=== PATIENT | female | born 1955 | race Caucasian/White ===

== ENCOUNTER 2017-04-23 06:00 | Day surgery (SDC) | payer OTHER ==
[~2017-04-23] VITALS: Ht 172.7 cm; Wt 117.9 kg
[~2017-04-23 06:00] MED LIST: ESCITALOPRAM OX10 MG PO; LISINOPRIL10 MG PO; METFORMIN HCL500 MG PO; OMEPRAZOLE20 MG PO; RELPAX20 MG PO; TOPROL XL50 MG PO; TOUJEO SOL300 UNIT/1; XARELTO20 MG PO
--- NOTE | 2017-04-23 08:18 | NUR ---
04/23/17 0818 Michelle Mcdonough 0751- RESP EVEN AND AND UNLABORED. O2 SAT WAS 86% WHEN FRIST ARRIVED. 0753 PT REACTIVE TO STIMULI AND O2 SAT INCREASED TO 95% 0800 O2 DECREASED TO 6L 0802 O2 REMOVED, PT AWAKE AND ASKING QUESTIONS. 0808 O2 SAT DECREASED TO 85% AND NC PLACED ON PT AT 4L. 0812 O2 SAT INCREASED TO 95%. PT BACK TO SLEEP.
--- NOTE | 2017-04-23 18:42 | OR ---
[facility] [address], [place] [address] Signed DATE OF OPERATION: 04/23/2017 SURGEON: Beckie Wild MD PREOPERATIVE DIAGNOSES: 1. Change in bowel habits with crampy lower abdominal pain and increased frequency of stool. 2. Anemia with hemoglobin 11.0. POSTOPERATIVE DIAGNOSES: 1. Gjgenuo-xu-ebnixheu left and sigmoid colon diverticulosis. 2. Minimal internal hemorrhoids. PROCEDURE: Colonoscopy without biopsy. ESTIMATED BLOOD LOSS: None. INDICATIONS: Adalgisa is a 61-year-old obese diabetic female at 5 feet 8 inches, 263 pounds with a body mass index of 40. She had been having crampy lower abdominal pain and had increased frequency of stool. Her guaiac cards were negative. She had been to her primary care provider. With her change in bowel habits, she was asked to see me for her initial colonoscopy. She gives no family history of colon cancer or polyps. She does get nauseated with anesthetics, so we gave her Phenergan and Zofran preoperatively. In addition, she has had cardiac cath and cardiac evaluation. The global product manager told her they gave a maximum amount of drugs during the cardiac cath and still could not get her to sleep. In addition, she takes daily escitalopram and has a very heavy full thick neck and a very short chin. I explained to him because of all these things, we would need an anesthesia provider to help us with increased monitoring of her airway as well as sedation with propofol. I also gave her a pamphlet in the office on colonoscopy. We looked at that together along with the risks including, but not limited to gas bloating, crampy abdominal pain, bleeding, perforation requiring surgery, and missed diagnosis. She had expressed understanding and wished to proceed. PROCEDURE NOTE: Adalgisa was taken into our endoscopy suite and placed in the left lateral decubitus position. She was given IV sedation with propofol per our nurse electric meter setter. Our nurse electric meter setter had to maintain her airway throughout the entire case. Under sedation, she Electronically Signed By: BECKIE WILD MD 04/23/17 1842 PATIENT NAME: ADALGISA HART OPERATIVE REPORT DATE OF : 59 PHYSICIAN: BECKIE WILD MD REPORT #: [id number] REPORT IS CONFIDENTIAL AND NOT TO BE RELEASED WITHOUT AUTHORIZATION [facility] [address] [place] [id number] Signed would rapidly desaturate and not protect her airway. When awake of course, her saturations would come back up. She appeared to have sleep apnea. She might consider a sleep study through her primary care provider. Once she was sedated, a digital rectal exam was performed and this was unremarkable. The adult colonoscope was introduced and advanced under direct visualization of camera all the way around into the cecum. It took some abdominal compression and some extra effort moving the camera back and forth in order to get the camera around the hepatic flexure and then finally down into the cecum myself. Her prep was good. The scope was then slowly withdrawn. We could see the ileocecal valve. She has diverticulosis in the left colon and sigmoid colon. They were [id number]-[id number] in size, [id number] in number and scattered about. The rectum itself was unremarkable. Upon retroflexion of the scope, she had minimal internal hemorrhoid columns. After this, the gas was suctioned out, the colonoscope removed. Adalgisa tolerated the procedure quite well. RECOMMENDATIONS: Adalgisa can follow up in my office in 10 years for repeat colonoscopy. She should consider a sleep study through her primary care provider. She is also anemic and needs to pursue that further with her primary care provider. Beckie Wild MD [facility] /[id number] cc: MD Bianca Gonzalez PA-C Electronically Signed By: BECKIE WILD MD 04/23/17 1842 PATIENT NAME: ADALGISA HART OPERATIVE REPORT DATE OF : 59 PHYSICIAN: BECKIE WILD MD REPORT #: [id number] REPORT IS CONFIDENTIAL AND NOT TO BE RELEASED WITHOUT AUTHORIZATION
== END 2017-04-23 08:55 | disposition home or self-care (01) ==
LOC: DS 06:00 → OPS 06:00 → DS 06:45 → OPS 08:55
PROVIDERS: Colon & Rectal Surgery
PROC: 0DJD8ZZ Inspection of Lower Intestinal Tract, Via Natural or Artificial Opening Endoscopic (ICD-10-PCS; principal; 2017-04-23 06:45)
DX: K64.8 Other hemorrhoids (principal); K57.30 Diverticulosis of large intestine without perforation or abscess without bleeding; D64.9 Anemia, unspecified; I48.91 Unspecified atrial fibrillation; I10 Essential (primary) hypertension; G43.909 Migraine, unspecified, not intractable, without status migrainosus; E11.9 Type 2 diabetes mellitus without complications; K21.9 Gastro-esophageal reflux disease without esophagitis; Z79.01 Long term (current) use of anticoagulants; Z79.84 Long term (current) use of oral hypoglycemic drugs; Z79.899 Other long term (current) drug therapy; Z90.12 Acquired absence of left breast and nipple; Z98.890 Other specified postprocedural states
CPT/HCPCS: 99156; 99157; J2250; J2405; J2550; J2704; J3010; J7120